=== PATIENT | male | born 1995 | race Hispanic/Latino ===

== ENCOUNTER 2017-09-02 07:18 | Emergency (ER) | payer OTHER ==
[2017-09-02] MEDS ORDERED: Ketorolac Tromethamine 30 MG/ML VIAL ONE (08:51)
--- NOTE | 2017-09-02 10:57 | RAD ---
3 VIEWS LUMBOSACRAL SPINE: Date: 09/02/17 COMPARISON: None. HISTORY: Low back pain. FINDINGS: Three views of the lumbosacral spine show normal height and alignment of the vertebral bodies and in tervertebral discs without fracture or subluxation. No degenerative changes are seen. IMPRESSION: Unremarkable exam. POS: [facility]
== END 2017-09-02 09:52 | disposition home or self-care (01) ==
LOC: ERS 07:18
DX: S39.012A Strain of muscle, fascia and tendon of lower back, initial encounter (principal); W18.40XA Slipping, tripping and stumbling without falling, unspecified, initial encounter
CPT/HCPCS: 72100; 96372; J1885